=== PATIENT | male | born 1990 | race Caucasian/White ===

== ENCOUNTER 2017-02-16 19:45 | Emergency (ER) | payer BC ==
[2017-02-16 20:00] VITALS: BP 130/86; TEMP 97.5; O2SAT 99
[2017-02-16] MEDS ORDERED: CHLORHEXIDINE GLUCONATE 4 % 15 ML UD TOP ONE (20:05)
[2017-02-16] MEDS ORDERED: TETANUS,DIPHTHERIA,PERTUSSIS 1 EA SYG IM ONE (20:08)
--- NOTE | 2017-02-16 20:10 | ED.PDOC ---
History of Present Illness - General Chief Complaint: Laceration Stated Complaint: LACERATON TO THE LEFT FOREARM Time Seen by Provider: 02/16/17 20:01 Source: patient, RN notes reviewed, Vital Signs reviewed Exam Limitations: no limitations - History of Present Illness Initial Comments: Patient was cutting a fishing line and razor blade slipped and stabbed him in his left forearm. No numbness or tingling. + localized tenderness and arm " feels stiff". Timing/Duration: just prior to arrival Severity: mild Location: extremities - L dorsal forearm Improving Factors: rest Worsening Factors: movement Associated Symptoms: denies symptoms Allergies/Adverse Reactions: Allergies NO KNOWN ALLERGY Allergy (Verified 02/16/17 19:57) Home Medications: Ambulatory Orders NK [NK] 02/16/17 Review of Systems - Review of Systems Constitutional: States: no symptoms reported Respiratory: States: no symptoms reported Cardiology: States: no symptoms reported Musculoskeletal: States: no symptoms reported Skin: States: see HPI Neurological: States: no symptoms reported. Denies: numbness, paresthesia, weakness All other Systems: No Change from Baseline Past Medical History (General) - Patient Medical History Hx Seizures: No Hx Stroke: No Hx Dementia: No Hx Asthma: No Hx of COPD: No Hx Cardiac Disorders: No Hx Congestive Heart Failure: No Hx Pacemaker: No Hx Hypertension: No Hx Thyroid Disease: No Hx Diabetes: No Hx Gastroesophageal Reflux: No Hx Renal Disease: No Hx Cancer: No Hx of HIV: No Hx Hepatitis C: No Hx MRSA: No Surgical History: appendectomy, tonsillectomy - Vaccination History Hx Tetanus, Diphtheria Vaccination: No Hx Influenza Vaccination: No Hx Pneumococcal Vaccination: No Immunizations Up to Date: Yes - Social History Hx Tobacco Use: Yes Hx Alcohol Use: Yes Hx Substance Use: No Family Medical History - Family History Mother Family History: No Known Living Status: Still Living Father Living Status: Cause of : CAR ACCIDENT Physical Exam - Physical Exam General Appearance: Alert, Comfortable, No apparent distress, Well Developed, Well Groomed, Well Hydrated, Well Nourished Respiratory: no respiratory distress Extremity: normal range of motion, normal capillary refill, other - L forearm muscle around laceration is tender. Neurologic: no motor/sensory deficits, alert, normal mood/affect, oriented x 3 Skin Exam: warm/dry, normal color Skin Problem Location: upper extremities - L dorsal mid forearm: 1.5cm linear laceration Progress - Progress Progress: 02/16/17 20:18 Patient would like to avoid sutures if at all possible. He is deathly afraid of needles. TdaP given Procedures - Laceration/Wound Repair Left Dorsal Arm Wound Length (cm): 1.5 Wound's Depth, Shape: into muscle, linear Wound Explored: no foreign body removed Betadine Prep?: No - scrubbed with Hibiclens & saline Volume Anesthetic (cc's): 0 Wound Repaired With: steri-strips Layer Closure?: No Sterile Dressing Applied?: Yes Departure - Departure Clinical Impression: Laceration without foreign body of left forearm, initial encounter Time of Disposition: 20:19 Disposition: Discharge to Home or Self Care Condition: Good Departure Forms: ED Discharge - Pt. Copy, Patient Portal Self Enrollment Instructions: DI for Laceration Repair Steri-Strips Diet: resume usual diet Activity: increase activity as tolerated Home Medications: Ambulatory Orders NK [NK] 02/16/17
[2017-02-16] MEDS ORDERED: NEOMYCIN-BACITRACIN-POLYMYXIN 0.9 GM UD TOP ONE ×2 (20:17→20:20)
== END 2017-02-16 20:27 | disposition home or self-care (01) ==
LOC: ER 19:45
DX: S51.812A Laceration without foreign body of left forearm, initial encounter (principal); Z23 Encounter for immunization; Z87.891 Personal history of nicotine dependence; W45.8XXA Other foreign body or object entering through skin, initial encounter; Y92.9 Unspecified place or not applicable